=== PATIENT | female | born 1985 | race Caucasian/White ===

== ENCOUNTER 2019-11-02 18:23 | Emergency (ER) | payer MEDICAID, SELFPAY ==
[2019-11-02 18:26] VITALS: BP 127/86; PULSE 116; RESP 18; TEMP 36.8; O2SAT 98; BMI 33.6
[2019-11-02 18:34] VITALS: BP 127/86; PULSE 126; RESP 17; O2SAT 98
--- NOTE | 2019-11-02 18:39 | ED_ITS ---
HPI - Nausea/Vomiting/Diarrhea General: Chief complaint: Nausea/Vomiting/Diarrhea Stated complaint: n/ Time Seen by Provider: 11/02/19 18:31 Source: patient Mode of arrival: ambulatory Limitations: no limitations History of Present Illness: HPI Narrative: Patient is a nice 34-year-old female presents to ED today with a complaint of nausea and vomiting over the past 3 to 4 days. Patient states she has not been able to hold anything down. She is having some mild epigastric pain that she attributes to the vomiting. She has not had any episodes of hematemesis or coffee-ground emesis. Patient is having normal bowel movements. She denies urinary symptoms. No fever/chills. She denies recent alcohol use, bad food exposures, antibiotic use, marijuana. She has no previous abdominal surgeries. Current medications include Remeron and Sertraline. MD elicited complaint: nausea, vomiting and abdominal pain Onset (ago): day(s) Associated nausea: Yes Associated abdominal pain: Yes Location of pain: Epigastric Exacerbating factors: eating Relieving factors: none Associated symtoms: Reports nausea; Denies change in vision, chest pain, dysuria or headache(s) Review of Systems Const: Denies: fever(s), chills or body aches Eyes: Denies: change in vision, blurry vision, photophobia, floaters or seeing flashes ENMT: Denies: throat pain or odynophagia Card: Denies: chest pain Resp: Denies: dyspnea GI: Reports: abdominal pain, nausea and vomiting; Denies: hematemesis, coffee ground emesis, diarrhea, constipation, change in stool character, hematochezia or melena : Denies: flank pain, difficulty voiding, dysuria, urinary frequency, urinary urgency or urinary hesitancy Musc: Denies: neck pain or back pain Skin/Breast: Denies: rash Neuro: Denies: headache(s), numbness in extremities, weakness in extremities or sensory changes PFSH ED PFSH: Medical History (Updated 11/02/19 @ 20:56 by GAVIOTA Madden) Alcohol dependence, in remission Cannabis dependence, in remission Generalized anxiety disorder Major depressive disorder, recurrent severe without psychotic features Nicotine dependence, cigarettes, uncomplicated Opioid dependence, in remission Other stimulant dependence, in remission Social History (Updated 07/01/19 @ 09:08 by JOCELIN Baxtre Smoking and tobacco status: current every day smoker cigarettes Packs smoked per day: 1 Smoking risk assessment/counseling performed?: Yes Tobacco counseling given: counseling >3 minutes Physical Exam Const: COMMON NORMALS: no acute distress, average body habitus, patient oriented x3, no limitations, healthy appearing, alert and well nourished ORIENTATION/CONSCIOUSNESS: Yes oriented to person, Yes oriented to place and Yes oriented to time Resp: COMMON NORMALS: normal respiratory effort and clear to auscultation bilaterally AUSCULTATION: clear to auscultation bilaterally Cardio: COMMON NORMALS: regular rate and regular rhythm RATE: regular rate RHYTHM: regular rhythm GI: COMMON NORMALS: Normal to inspection, nondistended, normoactive bowel sounds present, Soft to palpation, No hepatosplenomegaly present and no masses PALPATION: Yes Soft to palpation, Yes Tenderness to palpation present (GI) (mild epigastric) and Yes No hepatosplenomegaly present Extremity: COMMON NORMALS: no clubbing, cyanosis or edema and no pedal edema Neuro: COMMON NORMALS: patient oriented x3 SENSORIUM/ORIENTATION: Yes alert, Yes oriented to person, Yes oriented to place and Yes oriented to time Skin: COMMON NORMALS: no rashes or lesions noted GENERAL SKIN EXAM: no rashes or lesions noted Course Vital Signs: Vital signs: Vital Signs Temperature 98.3 F 11/02/19 18:26 Pulse Rate 126 H 11/02/19 18:34 Respiratory Rate 17 11/02/19 18:34 Blood Pressure 127/86 11/02/19 18:34 Pulse Oximetry 98 11/02/19 18:34 MDM - Nausea/Vomiting/Diarrhea MDM Narrative: Medical decision making narrative: Patient's labs are non- concerning at this time. UA grossly contaminated but does not appear overly suspicious for UTI. She was found to be which patient was unaware of. Hcg consistent with a probable 7 to 8-week . Patient will be given prescription for Diclegis and she states she will try to follow-up with Dr. Sher [facility] for OB care. Return to ED precautions given. Lab Data: Labs: Lab Results 11/02/19 11/02/19 11/02/19 Range/Units 18:49 18:52 18:52 WBC 14.2 H (4.0-10.0) 10^3/ uL RBC 4.91 (4.1-5.3) 10^6/u L Hgb 13.1 (11.5-15.3) g/dL Hct 39.9 (37.0-47.0) % MCV 81.3 (81-99) fL MCH 26.7 L (28.0-34.0) pg MCHC 32.8 (30.0-36.0) g/dL RDW 14.6 (12.1-15.1) % Plt Count 321 (130-400) 10^3/c mm MPV 10.5 H (7.4-10.4) fL Neut % (Auto) 63.9 % Lymph % (Auto) 29.7 % Park % (Auto) 5.1 % Eos % (Auto) 0.6 % Baso % (Auto) 0.3 % Neut # (Auto) 9.08 H (1.8-7.7) 10^3/u L Lymph # (Auto) 4.2 (0.8-4.8) 10^3/u L Park # (Auto) 0.7 (0.2-0.9) 10^3/u L Eos # (Auto) 0.1 (0.0-0.8) 10^3/u L Baso # (Auto) 0.0 (0.0-0.1) 10^3/u L Nucleated RBC % (a uto) 0 % Nucleated RBCs # 0.0 /100WBC Sodium 136 (136-145) mmol/L Potassium 3.5 (3.5-5.1) mmol/L Chloride 104 (98-107) mmol/L Carbon Dioxide 20 L (22-29) mmol/L Anion Gap 15.5 (5-19) BUN 6 (6-20) mg/dL Creatinine 0.7 (0.5-0.9) mg/dL GFR Calculation 95.8 (90-130) mL/min Glucose 98 (65-115) mg/dL Calculated Osmolal ity 278 L (285-295) mOsm/k g Calcium 9.5 (8.5-10.5) mg/dL Total Bilirubin 0.2 (0.15-1.2) mg/dL AST 15 (0-32) U/L ALT 9 (0-33) U/L Alkaline Phosphata se 83 (35-105) IU/L Total Protein 7.2 (6.6-8.7) g/dL Albumin 4.5 (3.5-5.2) g/dL Globulin 2.7 (1.3-4.6) g/dL Lipase 23 (13-60) U/L HCG, Qual (Negative) Ser , Sae i-Qnt mIU/mL Urine Color Yellow (Yellow) Urine Appearance Cloudy (CLEAR) Urine pH 5 (5-7) Ur Specific Gravit y 1.020 (1.005-1.030) Urine Protein Neg (Negative) Urine Glucose (UA) Norm (Normal) Urine Ketones Negative (Negative) Urine Blood Neg (Negative) Urine Nitrate Negative (Negative) Urine Bilirubin 1+ H (NEGATIVE) Urine Urobilinogen 1 H (Negative) mg/dL Ur Leukocyte Cesia ase 1+ H (Negative) Urine RBC 0-4 H (0-2) /hpf Urine WBC 5-10 H (0-5) /hpf Ur Squamous Epith Cells 55-80 H (0-5) Amorphous Sediment Not Reportable Urine Bacteria 1+ H (NONE) 11/02/19 11/02/19 Range/Units 18:52 18:52 WBC (4.0-10.0) 10^3/ uL RBC (4.1-5.3) 10^6/u L Hgb (11.5-15.3) g/dL Hct (37.0-47.0) % MCV (81-99) fL MCH (28.0-34.0) pg MCHC (30.0-36.0) g/dL RDW (12.1-15.1) % Plt Count (130-400) 10^3/c mm MPV (7.4-10.4) fL Neut % (Auto) % Lymph % (Auto) % Park % (Auto) % Eos % (Auto) % Baso % (Auto) % Neut # (Auto) (1.8-7.7) 10^3/u L Lymph # (Auto) (0.8-4.8) 10^3/u L Park # (Auto) (0.2-0.9) 10^3/u L Eos # (Auto) (0.0-0.8) 10^3/u L Baso # (Auto) (0.0-0.1) 10^3/u L Nucleated RBC % (a uto) % Nucleated RBCs # /100WBC Sodium (136-145) mmol/L Potassium (3.5-5.1) mmol/L Chloride (98-107) mmol/L Carbon Dioxide (22-29) mmol/L Anion Gap (5-19) BUN (6-20) mg/dL Creatinine (0.5-0.9) mg/dL GFR Calculation (90-130) mL/min Glucose (65-115) mg/dL Calculated Osmolal ity (285-295) mOsm/k g Calcium (8.5-10.5) mg/dL Total Bilirubin (0.15-1.2) mg/dL AST (0-32) U/L ALT (0-33) U/L Alkaline Phosphata se (35-105) IU/L Total Protein (6.6-8.7) g/dL Albumin (3.5-5.2) g/dL Globulin (1.3-4.6) g/dL Lipase (13-60) U/L HCG, Qual Positive H (Negative) Ser , [place]Qnt 44324.00 mIU/mL Urine Color (Yellow) Urine Appearance (CLEAR) Urine pH (5-7) Ur Specific Gravit y (1.005-1.030) Urine Protein (Negative) Urine Glucose (UA) (Normal) Urine Ketones (Negative) Urine Blood (Negative) Urine Nitrate (Negative) Urine Bilirubin (NEGATIVE) Urine Urobilinogen (Negative) mg/dL Ur Leukocyte Cesia ase (Negative) Urine RBC (0-2) /hpf Urine WBC (0-5) /hpf Ur Squamous Epith Cells (0-5) Amorphous Sediment Urine Bacteria (NONE) Discharge Plan Discharge Patient Disposition: Home, Self-Care Clinical Impression: Nausea and vomiting during Condition: Stable Prescriptions: New Diclegis 10-10 mg tablet,delayed release (DR/EC) 1 tab PO TID Qty: 30 RF: 0 No Action sertraline [Zoloft] 100 mg tablet 200 mg PO DAILY Qty: 60 RF: 1 mirtazapine 45 mg tablet 45 mg PO BEDTIME RF: 0 Discharge Orders: Discharge Order (Routine); Ordered 07/13/20 Ordered By: Jewels Juarez Referrals: Rolando Domingo MD [Primary Care Provider] - Patient Instructions: Morning Sickness (ED), (ED), Acute Nausea and Vomiting (ED) Activity Restrictions/Additional Instructions: Please follow-up with the women's health clinic or Dr. Sher as soon as possible for OB care. Return to the emergency department for worsening nausea and vomiting, abdominal pain, fevers, vaginal bleeding, any other concerns you may have. Coding Level of Care Code ED Director Of Vital Statistics for Chg Fwd Exam Detailed
[2019-11-02 18:58] LABS: Basophils % 0.3 %; Eosinophils # 0.1 10^3/uL (0.0-0.8); Eosinophils % 0.6 %; Hematocrit 39.9 % (37.0-47.0); Hemoglobin 13.1 g/dL (11.5-15.3); Lymphocytes # 4.2 10^3/uL (0.8-4.8); Lymphocytes % 29.7 %; Mean Corpuscular HGB Conc 32.8 g/dL (30.0-36.0); Mean Corpuscular Hemoglobin 26.7 pg (28.0-34.0); Mean Corpuscular Volume 81.3 fL (81-99); Mean Platelet Volume 10.5 fL (7.4-10.4); Monocytes # 0.7 10^3/uL (0.2-0.9); Monocytes % 5.1 %; Neutrophils # 9.08 10^3/uL (1.8-7.7); Neutrophils % 63.9 %; Nucleated Red Blood Cells % 0 %; Platelet Count 321 10^3/cmm (130-400); Red Blood Count 4.91 10^6/uL (4.1-5.3); Red Cell Distribution Width 14.6 % (12.1-15.1); White Blood Count 14.2 10^3/uL (4.0-10.0)
[2019-11-02] MEDS: lidocaine 2% viscous 15 ML, aluminum-mag hydrox-simethicon 30 ML, sucralfate oral liq 1 GM PO (19:09)
[2019-11-02 19:13] LABS: Alanine Aminotransferase 9 U/L (0-33); Albumin Level 4.5 g/dL (3.5-5.2); Alkaline Phosphatase 83 IU/L (35-105); Anion Gap 15.5 (5-19); Aspartate Amino Transferase 15 U/L (0-32); Blood Urea Nitrogen 6 mg/dL (6-20); Calcium 9.5 mg/dL (8.5-10.5); Carbon Dioxide 20 mmol/L (22-29); Chloride 104 mmol/L (98-107); Globulin 2.7 g/dL (1.3-4.6); Glomerular Filtration Rate 95.8 mL/min (90-130); Glucose 98 mg/dL (65-115); Lipase 23 U/L (13-60); Osmolality Calculated 278 mOsm/kg (285-295); Potassium 3.5 mmol/L (3.5-5.1); Sodium 136 mmol/L (136-145); Total Bilirubin 0.2 mg/dL (0.15-1.2); Total Protein 7.2 g/dL (6.6-8.7)
[2019-11-02 19:14] LABS: Add Urine Microscopic? YES; Blood Urine Neg (Negative); Glucose Urine UA Norm (Normal); Ketones Urine Negative (Negative); Leukocyte Esterase Urine 1+ (Negative); Nitrate Urine Negative (Negative); Protein Urine Neg (Negative); Urine Appearance Cloudy (CLEAR); Urine Color Yellow (Yellow); pH Urine 5 (5-7)
[2019-11-02] MEDS: sodium chloride 0.9% 1,000 ML 999 ML IV (19:15)
[2019-11-02 19:18] LABS: Bilirubin Urine 1+ (NEGATIVE); RBC Urine 0-4 /hpf (0-2); Urobilinogen Urine 1 mg/dL (Negative)
[2019-11-02] MEDS: ondansetron 2 mg/ML SDV 2 mL 4 MG IVP (19:18)
[2019-11-02 19:19] LABS: HCG, Serum Qual Positive (Negative)
[2019-11-02 19:19] LABS: Add Urine Culture? No; Bacteria Urine 1+; Squamous Epithelial Cell Urine 55-80 (0-5)
--- NOTE | 2019-11-02 19:26 | PC.NURSE ---
pt tolerated GI cocktail well
--- NOTE | 2019-11-02 20:39 | PC.NURSE ---
Pt states nausea has resolved. rates pain 2/10
[2019-11-02 21:43] VITALS: BP 131/86; PULSE 90; RESP 18; O2SAT 97
== END 2019-11-02 21:47 | disposition home or self-care (01) ==
PROVIDERS: Emergency Provider Physician Assistant; PCP Family Medicine
DX: O26.891 Other specified pregnancy related conditions, first trimester (principal); R11.2 Nausea with vomiting, unspecified; Z3A.01 Less than 8 weeks gestation of pregnancy; O99.331 Smoking (tobacco) complicating pregnancy, first trimester; F17.210 Nicotine dependence, cigarettes, uncomplicated
CPT/HCPCS: 12345; 36415; 80053; 81001; 81003; 83690; 84702; 84703; 85025; 96361; 96374; 99282; 99283; J2405; J7030

== ENCOUNTER → 2019-11-13 13:27 | Outpatient (BNVA) | payer MEDICAID, SELFPAY | PROVIDERS: PCP Family Medicine; Visit Provider Nurse Practitioner Women's Health | DX: O99.320 Drug use complicating pregnancy, unspecified trimester (principal) | CPT/HCPCS: 80307; 81000 ==

== ENCOUNTER → 2019-11-26 09:30 | Outpatient (BNVA) | payer MEDICAID, SELFPAY | PROVIDERS: Visit Provider Nurse Practitioner | DX: F33.2 Major depressive disorder, recurrent severe without psychotic features (principal); F41.1 Generalized anxiety disorder | CPT/HCPCS: 99214 ==

== ENCOUNTER → 2019-12-25 08:12 | Outpatient (BNVA) | payer MEDICAID, SELFPAY | PROVIDERS: Visit Provider Nurse Practitioner | DX: F33.2 Major depressive disorder, recurrent severe without psychotic features (principal); F41.1 Generalized anxiety disorder; F17.210 Nicotine dependence, cigarettes, uncomplicated | CPT/HCPCS: 99214 ==

== ENCOUNTER → 2020-01-25 07:53 | Outpatient (BNVA) | payer MEDICAID, SELFPAY | PROVIDERS: Visit Provider Nurse Practitioner | DX: F41.1 Generalized anxiety disorder (principal); F33.2 Major depressive disorder, recurrent severe without psychotic features; F17.210 Nicotine dependence, cigarettes, uncomplicated | CPT/HCPCS: 99213 ==

== ENCOUNTER → 2020-03-07 07:33 | Outpatient (BNVA) | payer MEDICAID, SELFPAY | PROVIDERS: Visit Provider Nurse Practitioner | DX: F41.1 Generalized anxiety disorder (principal); F33.2 Major depressive disorder, recurrent severe without psychotic features | CPT/HCPCS: 99213 ==

== ENCOUNTER → 2020-05-12 08:36 | Outpatient (BNVA) | payer BC, SELFPAY | PROVIDERS: Visit Provider Nurse Practitioner | DX: F33.2 Major depressive disorder, recurrent severe without psychotic features (principal); F41.1 Generalized anxiety disorder; F17.210 Nicotine dependence, cigarettes, uncomplicated | CPT/HCPCS: 99214 ==

== ENCOUNTER 2020-06-10 00:07 | Inpatient (IN) | payer BC, MEDICAID, SELFPAY ==
[2020-06-09 23:44] VITALS: RESP 17
[2020-06-09 23:46] VITALS: BMI 29.0
[2020-06-09 23:47] VITALS: TEMP 36.8
[2020-06-09 23:50] VITALS: BP 149/78; PULSE 120
[2020-06-10] VITALS (81 sets, daily range): BP systolic 98–176; BP diastolic 50–122; PULSE 88–136; RESP 16–18; TEMP 35.8–37.9; O2SAT 96–100
[2020-06-10] MEDS: dextrose 5%-lactated ringers 1,000 ML 125 ML IV (00:51)
[2020-06-10] MEDS: oxytocin 30 UNIT/500 ML BAG IV (00:55)
[2020-06-10 01:11] LABS: Basophils # 0.1 10^3/uL (0.0-0.1); Basophils % 0.4 %; Eosinophils # 0.1 10^3/uL (0.0-0.8); Eosinophils % 0.3 %; Hematocrit 37.2 % (37.0-47.0); Hemoglobin 12.5 g/dL (11.5-15.3); Lymphocytes # 4.5 10^3/uL (0.8-4.8); Lymphocytes % 21.5 %; Mean Corpuscular HGB Conc 33.6 g/dL (30.0-36.0); Mean Corpuscular Hemoglobin 27.9 pg (28.0-34.0); Monocytes # 1.2 10^3/uL (0.2-0.9); Monocytes % 5.5 %; Neutrophils # 14.83 10^3/uL (1.8-7.7); Neutrophils % 71.5 %; Nucleated Red Blood Cells % 0 %; Platelet Count 332 10^3/cmm (130-400); Red Blood Count 4.48 10^6/uL (4.1-5.3); Red Cell Distribution Width 14.3 % (12.1-15.1); White Blood Count 20.7 10^3/uL (4.0-10.0)
[2020-06-10 01:35] LABS: Amphetamines Screen Urine Negative (Negative); Barbiturates Screen Urine Negative (Negative); Benzodiazepines Screen Urine Negative (Negative); Cocaine Screen Urine Negative (Negative); Opiate Screen Urine Negative (Negative); PCP Screen Urine Negative (Negative); THC Screen Urine Positive (Negative)
[2020-06-10] MEDS: ondansetron 2 mg/ML SDV 2 mL 4 MG IVP ×2 (02:41→15:31)
[2020-06-10] MEDS: lactated ringers 1,000 ML 999 ML IV ×5 (03:03→17:23)
[2020-06-10] MEDS: metoclopramide 5 mg/mL SDV 2 mL 10 MG IV (03:55)
[2020-06-10] MEDS: fentaNYL 50 mcg/mL INJ 2mL IV (04:29)
--- NOTE | 2020-06-10 05:00 | P.ANESASSM_ITS ---
Pre-Anesthetic Assessment Pre-Anesthetic Assessment: Height/Weight: Height 1.6 m Weight 74.389 kg Temp Pulse Resp BP Pulse Ox 97.2 F L 107 H 18 131/72 100 06/10/20 05:37 06/10/20 05:47 06/10/20 04:29 06/10/20 05:48 06/10/20 05:47 Preop Diagnosis: IUP Was Beta Juan José taken within 24 hours: N/A Social: Social History: Alcohol (history of dependence) and Tobacco Comment: marijuana + Exam: Pre-Anes Outpt Exam: alert, oriented x 3, clear to auscultation bilaterally and regular rate & rhythm Airway: Submandibular: WNL Cervical ROM: WNL MP: 2 Additional comments: piercings History/ROS: No significant history except as noted Pulmonary: Pulmonary: None reported CV/HEM: CV/HEM: HTN : : None reported Hepatic: Hepatic: None reported GI: GI: None reported Metabolic: Metabolic: None reported Musc/skel: Musc/skel: None reported Neuropsych: Neuropsych: Anxiety and Depression Comments: major depressive disorder Anesthetic Plan: ASA status: 2 Anesthesia: Anesthesia Evaluation and Regional (specify below) Risk of > 500 ml blood loss (7ml/kg in children): No Meds/Allergies Current Medications: Current Medications Generic Name Dose Route Start Last Admin Trade Name Freq PRN Reason Stop Dose Admin Fentanyl 25 - 100 mcg 06/10/20 00:06 06/10/20 04:29 Fentanyl 50 Mcg/ Ml Inj 2ml IV 25 mcg Q1H PRN Administration SEVERE PAIN Dextrose/Lactated Ringer's 1,000 mls @ 125 m ls/hr 06/10/20 00:06 06/10/20 03:33 Dextrose 5%-Lact ated Ringers IV 0 mls/hr .Q8H PRN Infusion LABOR INDUCTION Lactated Ringer's 1,000 mls @ 999 m ls/hr 06/10/20 00:06 06/10/20 05:14 Lactated Ringers IV Infused .Q1H1M PRN Infusion Per L&D Rescitati on Protocol Oxytocin 30 unit in 500 ml s @ 1 mls/hr 06/10/20 00:06 06/10/20 02:09 Pitocin IV 2 milliunit/min .Q24H PRN 2 mls/hr LABOR INDUCTION Titration Protocol 1 MILLIUNIT/MIN Lactated Ringer's 1,000 mls @ 999 m ls/hr 06/10/20 00:09 06/10/20 05:14 Lactated Ringers IV 999 mls/hr .Q1H1M PRN Administration See label comment s Ondansetron HCl 4 mg 06/10/20 00:06 06/10/20 02:41 Ondansetron 2 Mg /Ml Sdv 2 Ml IVP 4 mg Q4H PRN Administration NAUSEA AND VOMITI NG PFSH Anesthesia PFSH: Medical History (Updated 11/13/19 @ 14:41 by Venice Quispe APN, RANDAL) Alcohol dependence, in remission Hypertension was diagnosed 2018; changed diet for management Major depressive disorder, recurrent severe without psychotic features Nicotine dependence, cigarettes, uncomplicated No pertinent past medical history neghx: dm,thyroid,dvt/pe,genital herpes negative partner hx herpes Opioid dependence, in remission 2017 Other stimulant dependence, in remission Surgical History (Updated 11/13/19 @ 14:30 by Venice Quispe APN, RANDAL) H/O dilation and curettage (~2002) due to heavy bleeding History of tonsillectomy and adenoidectomy As a child Family History Family/Other Breast cancer Paternal aunt Family history of thyroid problem Maternal cousins Ovarian cancer Maternal great aunt Uterine cancer Maternal great aunt Grandmother Breast cancer Maternal great grandmother Maternal grandmother Hyperlipidemia Maternal grandmother Hypertension Maternal grandmother Stroke Paternal grandmother Mother Heart disease Hypertension Grandfather Stroke Maternal grandfather Denies family history of Colon cancer Diabetes Social History (Updated 11/13/19 @ 14:48 by Venice Quispe APN, RANDAL) Smoking and tobacco status: current every day smoker Smoking risk assessment/counseling performed?: Yes Additional social history: - Tobacco use: Current everyday smoker; 0.5pk daily; this is down from 1-1.5 ppd Alcohol use: Former; Quit over 10 years Drug use: Marijuana; last used 10/2019 Female Reproductive History: : 1 Data Anesthesia CBC & Chem 7: 06/10/20 00:30 Other Labs: Laboratory Results - last 48 hr 06/10/20 06/10/20 00:30 00:30 WBC 20.7 H RBC 4.48 Hgb 12.5 Hct 37.2 MCV 83.0 MCH 27.9 L MCHC 33.6 RDW 14.3 Plt Count 332 MPV 12.0 H Neut % (Auto) 71.5 Lymph % (Auto) 21.5 [place] % (Auto) 5.5 Eos % (Auto) 0.3 Baso % (Auto) 0.4 Neut # (Auto) 14.83 H Lymph # (Auto) 4.5 [place] # (Auto) 1.2 H Eos # (Auto) 0.1 Baso # (Auto) 0.1 Nucleated RBC % (auto) 0 Nucleated RBCs # 0.0 Urine Opiates Screen Negative Ur Barbiturates Screen Negative Ur Phencyclidine Scrn Negative Ur Amphetamines Screen Negative U Benzodiazepines Scrn Negative Urine Cocaine Screen Negative U Marijuana (THC) Screen Positive H Cardiac Studies: No Data to Display
--- NOTE | 2020-06-10 05:54 | ANES.PROC ---
Anesthesia Procedures Procedure/Date: 06/10/20 Epidural: Time Out Performed: Yes Consents Signed: Procedure Consent Consent: requested by attending/covering physician Lumbar Level: L4-L5 Epidural position: sitting Epidural procedure: sterile prep of area, 1% lidocaine to numb the area, 18 g needle, negative for paresthesia passed, neg for paresthesia, test dose given, 1.5% xylocaine 1:200k epi (5ml), placed PCEA, no systemic response, sterile dressing applied, L.U.D. no apparent complications and 0.2% Ropiavacaine @ mls/hr (13) Additional Comments: Fentanyl 100mcg per epidural
--- NOTE | 2020-06-10 11:30 | PM.DELIVERY ---
Delivery Note: Date of delivery: June 10, 2020 Pre-Delivery Course: The patient had routine care at [facility]. Her was complicated by insufficient maternal weight gain. In fact she had a weight loss of approximately 20 pounds. She did continue to smoke cigarettes and marijuana during the . She has blood type B+ antibody negative, GC chlamydia negative, hepatitis B surface antigen nonreactive, hepatitis C nonreactive, HIV nonreactive, rubella immune. She passed her glucose tolerance test and was GBS negative. She was Covid unknown. Delivery: This is a 34-year-old G1, P0 at 38 weeks 0 days gestation by 8-week ultrasound KARAN of 06/24/20 who presented to labor and delivery complaining of spontaneous rupture of membranes. This occurred at about 20-30 on 218 and she stated was clear fluid. She was admitted for expectant management. She received an epidural for pain management. Her labor progressed well on its own. She had a normal spontaneous vaginal delivery of a viable male infant weight 4 pounds 15 ounces, 2240 g, Apgars 8 and 9 over an intact perineum. There was no nuchal cord. The was suctioned at delivery and placed on the mother's chest. The cord was clamped and cut. The placenta was delivered grossly intact and normal to inspection. There was a right labial laceration that was hemostatic but sutured for cosmesis. Mother and were doing well after delivery. A&P Assessment and plan (1) Normal spontaneous vaginal delivery: Routine care Status: Acute (2) Tobacco use during , delivered: Status: Acute (3) Marijuana use: Status: Acute Coding Level of Care Code Acute Physics Tutor for Chg Fwd Diagnoses Normal spontaneous vaginal delivery O80 Tobacco use during , delivered O99.334 Marijuana use F12.90
[2020-06-10] MEDS: miSOPROStol 200 mcg Tablet 800 MCG PO (12:12)
--- NOTE | 2020-06-10 12:15 | PC.NURSE ---
This resume writer at bedside with Veronique RN to administer 800mg rectally. This resume writer gave 8, 100 mcg of cytotec rectally with Veronique RN at the bedside to verify dose.
[2020-06-10] MEDS: oxytocin 10 unit/mL SDV 1 mL 40 UNIT IV (12:18)
[2020-06-10] MEDS: carboprost tromethamine 250 mcg/mL Amp IM (15:24)
[2020-06-10] MEDS: methylergonovine 0.2 mg/mL INJ 1 mL IM (15:24)
[2020-06-10] MEDS: benzocaine-menthol 78 gm Canister 1 SPRAY TOPICAL (19:13)
[2020-06-10] MEDS: HYDROcodone-acetaminophen 5-325 mg Tablet 2 TAB PO (19:18)
[2020-06-10] MEDS: docusate sodium 100 mg Capsule PO (20:12)
[2020-06-10] MEDS: ibuprofen 800 mg tablet PO (20:12)
[2020-06-10 20:38] LABS: Basophils # 0.1 10^3/uL (0.0-0.1); Basophils % 0.3 %; Hematocrit 30.4 % (37.0-47.0); Hemoglobin 10.1 g/dL (11.5-15.3); Lymphocytes # 4.9 10^3/uL (0.8-4.8); Lymphocytes % 21.5 %; Mean Corpuscular HGB Conc 33.2 g/dL (30.0-36.0); Mean Corpuscular Hemoglobin 28.1 pg (28.0-34.0); Mean Corpuscular Volume 84.7 fL (81-99); Mean Platelet Volume 12.3 fL (7.4-10.4); Monocytes # 1.2 10^3/uL (0.2-0.9); Monocytes % 5.4 %; Neutrophils # 16.53 10^3/uL (1.8-7.7); Neutrophils % 72.1 %; Nucleated Red Blood Cells % 0 %; Platelet Count 271 10^3/cmm (130-400); Red Blood Count 3.59 10^6/uL (4.1-5.3); Red Cell Distribution Width 14.3 % (12.1-15.1); White Blood Count 22.9 10^3/uL (4.0-10.0)
[2020-06-11] VITALS (7 sets, daily range): BP systolic 111–157; BP diastolic 59–64; PULSE 110–125; RESP 18; TEMP 36.1–36.5
[2020-06-11 01:11] LABS: Hematocrit 23.6 % (37.0-47.0); Hemoglobin 7.7 g/dL (11.5-15.3); Mean Corpuscular HGB Conc 32.6 g/dL (30.0-36.0); Mean Corpuscular Hemoglobin 27.9 pg (28.0-34.0); Mean Corpuscular Volume 85.5 fL (81-99); Mean Platelet Volume 12.1 fL (7.4-10.4); Platelet Count 253 10^3/cmm (130-400); Red Blood Count 2.76 10^6/uL (4.1-5.3); Red Cell Distribution Width 14.5 % (12.1-15.1); White Blood Count 29.2 10^3/uL (4.0-10.0)
[2020-06-11] MEDS: ibuprofen 800 mg tablet PO ×3 (09:40→20:39)
[2020-06-11] MEDS: docusate sodium 100 mg Capsule PO ×2 (09:40→18:10)
[2020-06-11] MEDS: prenatal vitamin Capsule 1 CAP PO (09:40)
--- NOTE | 2020-06-11 10:11 | ANE.PACU2 ---
Inpatient post-anesthesia follow up: Airway intact: Yes Vital signs: Temperature 97.5 F Pulse Rate 115 Respiratory Rate 18 Blood Pressure 128/59 Pulse Oximetry 99 Oxygen Delivery Me thod Room Air Oxygen Flow Rate Fraction of Inspir ed Oxygen Hydration adequate: Yes Nausea and vomiting: No Pain level: 2 Mental status: Baseline Additional Comments: No s/s of infection at epidural site, no numbness/weakness lower extremities, no headache, urinating without ivory
[2020-06-11] MEDS: sertraline 100 mg Tablet 150 MG PO (12:12)
[2020-06-12] VITALS (7 sets, daily range): BP systolic 104–124; BP diastolic 54–56; PULSE 105–126; RESP 18–20; TEMP 36.3–36.9
[2020-06-12] MEDS: prenatal vitamin Capsule 1 CAP PO (08:43)
[2020-06-12] MEDS: docusate sodium 100 mg Capsule PO (08:43)
[2020-06-12] MEDS: ibuprofen 800 mg tablet PO (08:43)
--- NOTE | 2020-06-12 11:17 | P.DS_ITS ---
Discharge Providers PLANT PROTECTION OFFICER Date of Admission: 06/10/20 00:07 Date of Discharge: 06/12/20 Attending Provider at Admission: Dolly Nieves MD Attending Provider at Discharge: Dolly Nieves MD Primary Care Provider: [facility] Diagnoses at Discharge Discharge Diagnosis (1) Normal spontaneous vaginal delivery: Status: Acute (2) Tobacco use during , delivered: Status: Acute (3) Marijuana use: Status: Acute (4) hemorrhage: Status: Acute Reason for Visit Reason for Visit: possible SROM Hospital Course Hospital Course This is a 34-year-old G1 now P1 who was admitted to labor and delivery in active labor. She had a normal spontaneous vaginal delivery of a viable male infant. Mother had hemorrhage within the first 2 to 6 hours of delivery and required Cytotec, transischemic acid, Methergine and Hemabate. It seemed to be related to intermittent uterine atony. After the initial 6 hours she did well. Her bleeding was light. She denied any significant dizziness or lightheadedness. She denied any unusual shortness of breath. She was pleased she did not require blood transfusion. She was agreeable to continuing iron supplementation. Her uterus remained tight and firm and she was monitored for a good 48 hours postdelivery. Information Peripartum Data: Infant Delivery Method: Vaginal Physical Exam HENMT: COMMON NORMALS: normocephalic and atraumatic HEAD & SCALP: normocephalic and atraumatic Eye: COMMON NORMALS: Equal, round and reactive pupils present and EOMs intact bilaterally PUPIL: Yes Equal, round and reactive pupils present Chest: COMMONS NORMALS: normal inspection of the chest Resp: COMMON NORMALS: normal respiratory effort and clear to auscultation bilaterally AUSCULTATION: clear to auscultation bilaterally Cardio: COMMON NORMALS: regular rate RATE: regular rate and tachycardic (110) GI: COMMON NORMALS: Soft to palpation (Fundus firm U- 2) and non-tender PALPATION: Yes Soft to palpation (Fundus firm U- 2) Extremity: COMMON NORMALS: no calf tenderness and no pedal edema Urinary Catheter Management^: [place]: Cath Placed During This Visit: yes Reason for Continuing Indwelling Catheter: Accurate Measurement of Urinary Output in Critically Ill Patients Urinary Catheter Date of Insertion: 06/10/20 Urinary Catheter Time of Insertion: 07:20 Discharge Data Data Completed and Pending: Pending at discharge Category Date Time Status RED BLOOD CELLS [ Leukocyte Reduced RBC] Routine Lab 06/10/20 00:30 Results Type and Screen R outine Lab 06/10/20 00:30 Results Vitals: Last Vital Signs Temp 98.1 F 06/12/20 09:04 Pulse 118 H 06/12/20 09:05 Resp 18 06/11/20 10:00 BP 107/56 06/12/20 09:05 Pulse Ox 99 06/10/20 16:09 Discharge Plan Discharge Patient Disposition: Home Condition: Stable Prescriptions: Continued prenat.vits,giselle,fwm-[id number] Tablet 1 tab PO DAILY RF: 0 ondansetron HCl [Zofran] 4 mg tablet 4 mg PO Q6H PRN (Reason: Nausea) RF: 0 sertraline [Zoloft] 100 mg tablet 150 mg PO DAILY Qty: 30 RF: 1 Discharge Orders: Discharge Order (Routine); Ordered 06/12/20 Ordered By: Dolly Nieves Referrals: Dolly Nieves MD [Physician] - 1 month Discharge Diet: Usual diet Discharge Activity: Limit activity as instructed Patient Instructions: OB Discharge Report, OB Food/Drug Interaction Guide, OB Vaginal Deliveries, Abnormal Bleeding, Depression Discharge Attestations PLANT PROTECTION OFFICER Time Spent in Discharge Care*: less than 30 min Coding Level of Care Code Acute Inspector Advanced Composite for Chg Fwd Diagnoses Normal spontaneous vaginal delivery O80 Tobacco use during , delivered O99.334 Marijuana use F12.90 hemorrhage O72.1
== END 2020-06-12 13:30 | disposition home or self-care (01) | DRG 768 ==
LOC: OBGYN 06-12 11:20 → OPOB 06-14 07:42
PROVIDERS: Admitting Provider Family Medicine; Visit Provider Family Medicine
DX: O42.02 Full-term premature rupture of membranes, onset of labor within 24 hours of rupture (principal); Z37.0 Single live birth; O99.324 Drug use complicating childbirth; O72.1 Other immediate postpartum hemorrhage; F12.10 Cannabis abuse, uncomplicated; Z3A.38 38 weeks gestation of pregnancy; O99.334 Smoking (tobacco) complicating childbirth; F17.210 Nicotine dependence, cigarettes, uncomplicated; O70.0 First degree perineal laceration during delivery
CPT/HCPCS: 36415; 51702; 59025; 59409; 80306; 83986; 85025; 85027; 86850; 86900; 86920; 96372; 99211; J2210; J2405; J2765; J2795; J3010

== ENCOUNTER → 2020-06-13 07:32 | Outpatient (BNVA) | payer BC, MEDICAID, SELFPAY | PROVIDERS: Visit Provider Nurse Practitioner | DX: F33.2 Major depressive disorder, recurrent severe without psychotic features (principal); F41.1 Generalized anxiety disorder; F17.210 Nicotine dependence, cigarettes, uncomplicated; F12.20 Cannabis dependence, uncomplicated | CPT/HCPCS: 99214 ==

== ENCOUNTER 2020-06-26 14:53 | Observation (INO) | payer BC, MEDICAID, SELFPAY ==
[2020-06-26] VITALS (12 sets, daily range): BP systolic 101–134; BP diastolic 54–73; PULSE 78–120; RESP 16–18; TEMP 36.9–38.2; O2SAT 96–100; BMI 27.1
--- NOTE | 2020-06-26 15:08 | USR_ITS ---
PROCEDURE INFORMATION: Exam: US Nonobstetric Pelvis; Complete Exam date and time: 06/26/2020 3:18 PM Age: 34 years old Clinical indication: Other: Vaginal bleeding; Patient HX: Patient states recent delivery with internal stitches; Additional info: Vag bleeding TECHNIQUE: Imaging protocol: Transabdominal pelvic nonobstetric ultrasound. Complete exam. Real time ultrasound with image documentation. COMPARISON: US OB >= 14 weeks fetus [id number] 02/08/2020 4:27 PM FINDINGS: Uterus/cervix: Uterus 11.3 x 6.2 x 8.1 cm. Heterogeneous endometrial echoes measuring 3.1 cm AP dimension, with color Doppler hypervascularity (series 1, images 7 and 11). A small amount of endometrial cavity fluid and/or cystic degeneration is present. Right adnexa: Right ovary not identified. No adnexal mass. Left adnexa: Left ovary not identified. No adnexal mass. Intraperitoneal space: No intraperitoneal fluid. Urinary bladder: Normal. US/US pelvic complete* [id number] IMPRESSION: Findings consistent with retained products of conception.
--- NOTE | 2020-06-26 16:13 | ED_ITS ---
HPI - Female Genitourinary General: Chief complaint: Vaginal Bleeding Stated complaint: Vaginal Bleeding/Headache (Post Delivery Related) Time Seen by Provider: 06/26/20 15:20 History of Present Illness: HPI Narrative: The patient is a 34-year-old female who gave to a vaginal delivery on June 10, 2020. Her hemoglobin at that time was 7.7. She says she has continued to have vaginal bleeding and is beginning to have a headache, dizziness, general weakness and low back pain. The vaginal bleeding is slightly less recently however when she stands up a large gush of dark clotted blood may come out. MD elicited complaint: vaginal bleeding Severity: moderate Quality of pain: cramping Consistency: constant Vaginal bleeding: moderate Exacerbating factors: none Relieving factors: none Associated symptoms: Reports headache(s); Deny abdominal pain Related Data: : 1 Review of Systems General: Reports: 10 or more systems reviewed and unremarkable except in HPI and below Const: Denies: fatigue Eyes: Denies: change in vision, blurry vision or eye redness ENMT: Denies: throat pain, swelling of lips/tongue, ear or mastoid pain or nasal congestion Card: Denies: chest pain, palpitations, irregular heart rhythm, edema, dyspnea on exertion or orthopnea Resp: Denies: dyspnea, productive cough or non-productive cough GI: Denies: abdominal pain, diarrhea or GI cramping : Denies: flank pain, difficulty voiding, urinary frequency or urinary urgency Musc: Denies: neck pain, back pain, extremity pain, joint pain, joint redness, limited range of motion or muscle weakness Skin/Breast: Denies: rash, pruritus, erythema, skin pain or skin tenderness Neuro: Reports: headache(s) Psych: Denies: anxiety or depression Endo: Denies: polyuria All/Imm: Denies: urticaria, throat swelling or tongue swelling PFSH ED PFSH: Medical History (Updated 06/26/20 @ 17:15 by João Manuel MD) Alcohol dependence, in remission Cannabis dependence Hypertension was diagnosed 2018; changed diet for management Major depressive disorder, recurrent severe without psychotic features Nicotine dependence, cigarettes, uncomplicated No pertinent past medical history neghx: dm,thyroid,dvt/pe,genital herpes negative partner hx herpes Opioid dependence, in remission 2018 Other stimulant dependence, in remission Surgical History (Updated 11/13/19 @ 14:30 by Venice Quispe APN, WHNP) H/O dilation and curettage (~2002) due to heavy bleeding History of tonsillectomy and adenoidectomy As a child Family History Family/Other Breast cancer Paternal aunt Family history of thyroid problem Maternal cousins Ovarian cancer Maternal great aunt Uterine cancer Maternal great aunt Grandmother Breast cancer Maternal great grandmother Maternal grandmother Hyperlipidemia Maternal grandmother Hypertension Maternal grandmother Stroke Paternal grandmother Mother Heart disease Hypertension Grandfather Stroke Maternal grandfather Denies family history of Colon cancer Diabetes Social History (Updated 11/13/19 @ 14:48 by Venice Quispe APN, WHNP) Smoking and tobacco status: current every day smoker Smoking risk assessment/counseling performed?: Yes Additional social history: - Tobacco use: Current everyday smoker; 0.5pk daily; this is down from 1-1.5 ppd Alcohol use: Former; Quit over 10 years Drug use: Marijuana; last used 10/2019 Female Reproductive History: : 1 Physical Exam Const: COMMON NORMALS: no acute distress, average body habitus, patient oriented x3, no limitations, healthy appearing, alert and well nourished GENERAL APPEARANCE: cooperative, comfortable, well kempt and well developed ORIENTATION/CONSCIOUSNESS: Yes awake, Yes oriented to person, Yes oriented to place and Yes oriented to time HENMT: COMMON NORMALS: normocephalic, external ears normal and Normal external nose present HEAD & SCALP: normal to inspection and normocephalic NOSE: Normal external nose present EXTERNAL EAR: Yes external ears normal MOUTH: Normal oral and palatal mucosa present THROAT: posterior oropharynx normal Eye: COMMON NORMALS: Equal, round and reactive pupils present and EOMs intact bilaterally GENERAL EYE: appearance normal, both eyes and all related structures PUPIL: Yes Equal, round and reactive pupils present Neck/C-Spine: COMMON NORMALS: full ROM, no lymphadenopathy, no meningeal signs and no JVD GENERAL: Yes normal visual inspection Lymph: LYMPHATIC: no lymphadenopathy noted Chest: COMMONS NORMALS: normal inspection of the chest and normal palpation of entire chest wall Resp: COMMON NORMALS: normal respiratory effort, No retractions, No use of accessory muscles, clear to auscultation bilaterally and percussion normal EFFORT & INSPECTION: Yes able to speak in complete sentences AUSCULTATION: clear to auscultation bilaterally PERCUSSION: percussion normal Cardio: COMMON NORMALS: no JVD, regular rate, regular rhythm, S1 normal heart sound present, S2 normal heart sound present and Peripheral pulses 2+ throughout RATE: regular rate RHYTHM: regular rhythm HEART SOUNDS: S1 normal heart sound present and S2 normal heart sound present PERIPHERAL PULSES: Peripheral pulses 2+ throughout GI: COMMON NORMALS: Normal to inspection, nondistended, normoactive bowel sounds present, Soft to palpation, non-tender and no masses INSPECTION: Yes normal to inspection PALPATION: Yes Soft to palpation : COMMON NORMALS: Yes no CVA tenderness BLADDER/KIDNEY EXAM: Yes no CVA tenderness Back/Pelvis: COMMON NORMALS: no CVA tenderness, thoracic and lumbar spine normal to inspection, no thoracic nor lumbar tenderness and thoraco-lumbar ROM normal Extremity: COMMON NORMALS: normal to inspection, full ROM, capillary refill normal, no joint enlargement and no pedal edema GENERAL: Yes normal exam except as noted Neuro: COMMON NORMALS: patient oriented x3, CN's II-XII intact bilaterally, moves all extremities, no focal motor deficits, no sensory deficits noted and gait normal SENSORIUM/ORIENTATION: Yes alert, Yes oriented to person, Yes oriented to place and Yes oriented to time MENINGEAL SIGNS: Yes no meningeal signs Psych: COMMON NORMALS: mental status grossly normal, Normal thought process present, cooperative, normal affect and speech normal APPEARANCE: Yes well kempt ATTITUDE: Yes calm SPEECH: Yes normal speech THOUGHT PROCESS: Normal thought process present Skin: COMMON NORMALS: no rashes or lesions noted GENERAL SKIN EXAM: no r ashes or lesions noted Course Vital Signs: Vital signs: Vital Signs Temperature 100.7 F H 06/26/20 17:02 Pulse Rate 104 H 06/26/20 17:02 Respiratory Rate 16 06/26/20 17:02 Blood Pressure 125/65 06/26/20 17:02 Pulse Oximetry 100 06/26/20 17:02 MDM - Female MDM Narrative: Medical decision making narrative: The patient has a hemoglobin of 7.1 and is still complaining of vaginal bleeding. Ultrasound shows products of conception. Discussed with Dr. Nieves who accepts for admission to the OB floor. She thinks it is likely just blood and not truly products of conception as the placenta was intact. Will admit under her care. Lab Data: Labs: Lab Results 06/26/20 Range/Units 16:37 WBC 14.5 H (4.0-10.0) 10^3/ uL RBC 2.75 L (4.1-5.3) 10^6/u L Hgb 7.1 L (11.5-15.3) g/dL Hct 23.1 L (37.0-47.0) % MCV 84.0 (81-99) fL MCH 25.8 L (28.0-34.0) pg MCHC 30.7 (30.0-36.0) g/dL RDW 15.1 (12.1-15.1) % Plt Count 445 H (130-400) 10^3/c mm MPV 9.1 (7.4-10.4) fL Neut % (Auto) 82.3 % Lymph % (Auto) 12.7 % Archer % (Auto) 4.2 % Eos % (Auto) 0.0 % Baso % (Auto) 0.2 % Neut # (Auto) 11.89 H (1.8-7.7) 10^3/u L Lymph # (Auto) 1.8 (0.8-4.8) 10^3/u L Archer # (Auto) 0.6 (0.2-0.9) 10^3/u L Eos # (Auto) 0.0 (0.0-0.8) 10^3/u L Baso # (Auto) 0.0 (0.0-0.1) 10^3/u L Nucleated RBC % (a uto) 0 % Nucleated RBCs # 0.0 /100WBC Discharge Plan Discharge Patient Disposition: Admitted As Inpatient Clinical Impression: Vaginal bleeding, Severe anemia Condition: Stable Coding Level of Care Code ED Tile Layer Supervisor for Chg Fwd Exam Comprehensive
[2020-06-26 16:46] LABS: Basophils % 0.2 %; Hematocrit 23.1 % (37.0-47.0); Hemoglobin 7.1 g/dL (11.5-15.3); Lymphocytes # 1.8 10^3/uL (0.8-4.8); Lymphocytes % 12.7 %; Mean Corpuscular HGB Conc 30.7 g/dL (30.0-36.0); Mean Corpuscular Hemoglobin 25.8 pg (28.0-34.0); Mean Platelet Volume 9.1 fL (7.4-10.4); Monocytes # 0.6 10^3/uL (0.2-0.9); Monocytes % 4.2 %; Neutrophils # 11.89 10^3/uL (1.8-7.7); Neutrophils % 82.3 %; Nucleated Red Blood Cells % 0 %; Platelet Count 445 10^3/cmm (130-400); Red Blood Count 2.75 10^6/uL (4.1-5.3); Red Cell Distribution Width 15.1 % (12.1-15.1); White Blood Count 14.5 10^3/uL (4.0-10.0)
[2020-06-26] MEDS: sodium chloride 0.9% 1,000 ML 999 ML IV (17:03)
[2020-06-26 17:14] LABS: Alanine Aminotransferase 9 U/L (0-33); Albumin Level 3.2 g/dL (3.5-5.2); Alkaline Phosphatase 119 IU/L (35-105); Anion Gap 14.7 (5-19); Aspartate Amino Transferase 12 U/L (0-32); Blood Urea Nitrogen 5 mg/dL (6-20); Calcium 8.4 mg/dL (8.5-10.5); Carbon Dioxide 20 mmol/L (22-29); Chloride 102 mmol/L (98-107); Globulin 2.9 g/dL (1.3-4.6); Glomerular Filtration Rate 114.4 mL/min (90-130); Glucose 82 mg/dL (65-115); Osmolality Calculated 272 mOsm/kg (285-295); Potassium 3.7 mmol/L (3.5-5.1); Sodium 133 mmol/L (136-145); Total Bilirubin 0.2 mg/dL (0.15-1.2); Total Protein 6.1 g/dL (6.6-8.7)
--- NOTE | 2020-06-26 18:52 | XRR_ITS ---
PROCEDURE INFORMATION: Exam: XR Chest Exam date and time: 06/26/2020 6:55 PM Age: 34 years old Clinical indication: Fever; Patient HX: Post vaginal delivery 06/10/2020 TECHNIQUE: Imaging protocol: XR of the chest Views: 1 view. COMPARISON: No relevant prior studies available. FINDINGS: Lungs: There are minimal hazy opacities at the left lung base. Pleural spaces: Unremarkable. No pleural effusion. No pneumothorax. Heart/Mediastinum: Unremarkable. No cardiomegaly. Bones/joints: Unremarkable. XR/XR chest 1V portable [id number] IMPRESSION: Minimal hazy opacities at the left lung base are nonspecific. Pneumonia cannot be excluded.
[2020-06-26] MEDS: acetaminophen 325 mg Tablet 650 MG PO (19:50)
--- NOTE | 2020-06-26 20:02 | PM.SDS ---
Short Stay Summary Providers Date of Admit/Discharge: 07/02/20 Attending Provider: Dolly Nieves MD Chief Complaint: Vaginal Bleeding/Headache (Post Delivery Related) HPI History of Present Illness Janae Elizabeth is a 34 year old female who presented to the ER because she states the last several days she started to feel worse and worse. By worse she means kind of dizzy, weak, chilling and then hot flashing, and she would have off and on bleeding. She would sit down for a while and then when she stood up she would have a gush. Sometimes it would be brown sometimes red sometimes orange. Patient also complains of 1 day of nausea. She vomited once. She has had no diarrhea. She also had some lower back pain, lower back spasms, and abdominal cramping that radiated to her back. The ER physician was concerned for her abnormal amount of blood loss however after speaking with the patient her blood loss seems average for where she is . Additionally her blood count was 7.7 12 hours postdelivery. Today her hemoglobin is 7.1, thus favoring expected blood loss. Ultrasound was concerning for retained products of conception, however she is only 2 weeks so this is difficult to decipher. I was delivering physician and the placenta was grossly intact upon delivery. I do not suspect retained products, however we will monitor her bleeding closely. Interestingly since the patient has been in the ER she developed a minor temperature of 100.7. I suspect she may be coming down with a viral infection which may be causing her to feel worse the past several days. If she does well post transfusion of 2 units packed red blood cells it is possible she may be discharged home later. Review of Systems Const: Reports: chills, fatigue and diaphoresis Eyes: Denies: change in vision ENMT: Denies: throat pain, swelling of lips/tongue, nasal discharge or nasal congestion Card: Reports: lightheadedness; Denies: chest pain, irregular heart rhythm or orthopnea Resp: Denies: productive cough, non-productive cough or wheezing GI: Reports: abdominal pain, nausea and vomiting; Denies: diarrhea, constipation or bloating : Denies: flank pain, difficulty voiding or urinary frequency Musc: Reports: back pain; Denies: joint pain, joint redness or joint warmth Skin/Breast: Denies: rash or pruritus Neuro: Denies: numbness in extremities Endo: Reports: hot flashes; Denies: polyuria or polydipsia Ignacio/Lymph: Denies: enlarged lymph nodes Home Meds/Allergies Home Medications and Allergies Home Medications Medication Instructions Recorded Confirmed Type prenat.vits,giselle,[id number] 1 tab PO DAILY 12/24/19 06/26/20 History ondansetron HCl 4 mg tablet 4 mg PO Q6H PRN 01/22/20 06/26/20 History Stool Softener 200 mg PO DAILY 06/26/20 06/26/20 History Zoloft 200 mg PO BEDTIME 06/26/20 06/26/20 History ibuprofen 800 mg PO PRN 06/26/20 06/26/20 History iron 325 mg PO DAILY 06/26/20 06/26/20 History Allergies Allergy/AdvReac Type Severity Reaction Status Date / Time adhesive tape Allergy ALGY-Rash Verified 06/26/20 15:22 Penicillins Allergy ALGY-Rash Verified 06/26/20 15:22 pseudoephedrine Allergy unknown Verified 06/26/20 15:22 PFSH Acute PFSH: Medical History (Updated 06/28/20 @ 00:00 by ) Alcohol dependence, in remission Cannabis dependence Hypertension was diagnosed 2018; changed diet for management Major depressive disorder, recurrent severe without psychotic features Nicotine dependence, cigarettes, uncomplicated No pertinent past medical history neghx: dm,thyroid,dvt/pe,genital herpes negative partner hx herpes Opioid dependence, in remission 2018 Other stimulant dependence, in remission Surgical History (Updated 11/13/19 @ 14:30 by Venice Quispe APN, RANDAL) H/O dilation and curettage (~2002) due to heavy bleeding History of tonsillectomy and adenoidectomy As a child Family History Family/Other Breast cancer Paternal aunt Family history of thyroid problem Maternal cousins Ovarian cancer Maternal great aunt Uterine cancer Maternal great aunt Grandmother Breast cancer Maternal great grandmother Maternal grandmother Hyperlipidemia Maternal grandmother Hypertension Maternal grandmother Stroke Paternal grandmother Mother Heart disease Hypertension Grandfather Stroke Maternal grandfather Denies family history of Colon cancer Diabetes Social History (Updated 11/13/19 @ 14:48 by Venice Quispe APN, RANDAL) Smoking and tobacco status: current every day smoker Smoking risk assessment/counseling performed?: Yes Additional social history: - Tobacco use: Current everyday smoker; 0.5pk daily; this is down from 1-1.5 ppd Alcohol use: Former; Quit over 10 years Drug use: Marijuana; last used 10/2019 Female Reproductive History: : 1 Para: 1 Other female reproductive history: The patient delivered on 06/10/2020 via normal spontaneous vaginal delivery. She did have hemorrhage within 6 hours after delivery. Vitals/I&O/Wt Last Vital Signs Temp 100.7 F H 06/26/20 17:02 Pulse 120 H 06/26/20 19:42 Resp 16 06/26/20 19:42 BP 134/73 06/26/20 19:42 Pulse Ox 96 06/26/20 19:42 Weight last 48 hrs Weight 153 lb Physical Exam Const: COMMON NORMALS: no acute distress GENERAL APPEARANCE: cooperative and comfortable HENMT: COMMON NORMALS: normocephalic and atraumatic HEAD & SCALP: normocephalic and atraumatic FACE & SINUS: normal facial exam Eye: COMMON NORMALS: Equal, round and reactive pupils present and EOMs intact bilaterally PUPIL: Yes Equal, round and reactive pupils present Chest: COMMONS NORMALS: normal inspection of the chest Resp: COMMON NORMALS: normal respiratory effort, No retractions, No use of accessory muscles and clear to auscultation bilaterally EFFORT & INSPECTION: Yes able to speak in complete sentences AUSCULTATION: clear to auscultation bilaterally Cardio: COMMON NORMALS: regular rate RATE: regular rate and tachycardic (105) GI: COMMON NORMALS: Normal to inspection, nondistended, normoactive bowel sounds present, Soft to palpation (Fundus is firm, deep in the pelvis and nontender) and non-tender PALPATION: Yes Soft to palpation (Fundus is firm, deep in the pelvis and nontender) Extremity: GENERAL: No calf tenderness and No edema Skin: COMMON NORMALS: turgor normal NARRATIVE SKIN EXAM: Normal color, in fact her face is perhaps a little flushed GENERAL SKIN EXAM: turgor normal Hospital Course Hospital Course The patient was admitted for symptomatic blood loss anemia. She received 2 units packed red blood cells and her symptoms improved. Discharge Summary The patient felt much improved after 2 units packed red blood cells. Her chest x-ray was questionable for a left lower lobe infiltrate. Since she had been developing a fever I will go ahead and cover her with Levaquin, however it is more likely that this is a viral illness she is starting to come down with. she was discharged home in good condition SSS Data Data Completed and Pending: Completed Studies During Hospitalization Category Date Time Status XR chest 1V leo ble [id number] Stat Exams 06/26/20 18:52 Completed US pelvic complet e* [id number] Urgent Ultrasound 06/26/20 15:08 Completed Pending at discharge Category Date Time Status Leukocyte Reduced RBC Stat Lab 06/26/20 16:50 Results Type and Screen S tat Lab 06/26/20 16:50 Results Urinalysis Stat Lab 06/26/20 15:21 Uncollected Diagnoses at Discharge Discharge Diagnosis (1) Severe anemia: Status: Acute Discharge Plan Discharge Patient Disposition: Home Condition: Stable Prescriptions: Continued prenat.vits,giselle,[id number] Tablet 1 tab PO DAILY RF: 0 ondansetron HCl [Zofran] 4 mg tablet 4 mg PO Q6H PRN (Reason: Nausea) RF: 0 iron 325 mg (65 mg iron) Tablet 325 mg PO DAILY RF: 0 ibuprofen 200 mg Tablet 800 mg PO PRN RF: 0 Stool Softener 100 mg Capsule 200 mg PO DAILY RF: 0 Zoloft 100 mg tablet 200 mg PO BEDTIME RF: 0 Discharge Orders: Discharge Order (Routine); Ordered 06/27/20 Ordered By: Dolly Nieves Referrals: Dolly Nieves MD [Physician] - 06/30/20 9:30 am Discharge Diet: Usual diet Discharge Activity: Resume usual activity Patient Instructions: Anemia, Levofloxacin (By mouth), Bleeding (DC) Attestations Medical Necessity Statement*: Need for blood transfusion due to blood loss anemia Time Spent in Patient Care*: greater than 30 min Quality Metrics Clinical Quality Measures: During this hospital stay, did patient experience: None Coding Level of Care Code Acute Electrical Maintenance Supervisor for [place] Fwd Exam Comprehensive Diagnoses Severe anemia D64.9
[2020-06-26 20:42] LABS: SARS Covid-2 Antigen Negative (Negative)
[2020-06-26 21:23] LABS: Glucose Urine UA Norm (Normal); Protein Urine 1+ (Negative); Specific Gravity, Urine 1.005 (1.005-1.030); Urine Color Yellow (Yellow); pH Urine 8 (5-7)
[2020-06-26 21:24] LABS: Add Urine Microscopic? YES; Bilirubin Urine Neg (Negative); Blood Urine 3+ (Negative); Ketones Urine 1+ (Negative); Leukocyte Esterase Urine 2+ (Negative); Nitrate Urine Negative (Negative); Sulfosalicylic Acid Urine Positive (Negative); Urobilinogen Urine Norm (Negative)
[2020-06-26 21:30] LABS: Add Urine Culture? No; Bacteria Urine 4+ /hpf; RBC Urine TOO NUMEROUS TO CNT /hpf (0-2); Squamous Epithelial Cell Urine >100 /hpf (0-5); WBC Urine TOO NUMEROUS TO CNT /hpf (0-5)
[2020-06-26] MEDS: levofloxacin-dextrose 5 % 750 MG/150 ML PREMIX 100 MG IV (22:49)
[2020-06-27 00:25] VITALS: BP 105/65; BP 107/70; PULSE 86; PULSE 91; RESP 17; RESP 18; TEMP 36.2; TEMP 37; O2SAT 98; O2SAT 99
[2020-06-27] MEDS: sertraline 100 mg Tablet 200 MG PO (01:41)
[2020-06-27 01:56] VITALS: BP 113/74; PULSE 88; RESP 17; TEMP 37.3; O2SAT 97
[2020-06-27 04:00] VITALS: BP 114/75; PULSE 92; RESP 17; TEMP 36.2; O2SAT 97
--- NOTE | 2020-06-27 04:12 | PC.NURSE ---
scale zeroed out with pad, pt's pad weighed 1mL. pt had reddish-brown blood on pad. pt states that she does not feel like she is having the gushing feeling anymore
[2020-06-27 07:18] VITALS: BP 125/80; PULSE 87; RESP 18; TEMP 36.4; O2SAT 98
[2020-06-27 07:29] LABS: Basophils % 0.4 %; Eosinophils % 0.1 %; Hematocrit 30.1 % (37.0-47.0); Hemoglobin 9.8 g/dL (11.5-15.3); Lymphocytes # 2.6 10^3/uL (0.8-4.8); Lymphocytes % 25.1 %; Mean Corpuscular HGB Conc 32.6 g/dL (30.0-36.0); Mean Corpuscular Hemoglobin 27.8 pg (28.0-34.0); Mean Corpuscular Volume 85.3 fL (81-99); Mean Platelet Volume 9.3 fL (7.4-10.4); Monocytes # 0.7 10^3/uL (0.2-0.9); Monocytes % 6.7 %; Neutrophils # 6.83 10^3/uL (1.8-7.7); Neutrophils % 66.8 %; Nucleated Red Blood Cells % 0 %; Platelet Count 365 10^3/cmm (130-400); Red Blood Count 3.53 10^6/uL (4.1-5.3); Red Cell Distribution Width 15.2 % (12.1-15.1); White Blood Count 10.2 10^3/uL (4.0-10.0)
[2020-06-27] MEDS: ferrous sulfate EC 325 mg Tablet PO (08:35)
[2020-06-27] MEDS: multivitamin therapeutic Tablet 1 TAB PO (08:35)
[2020-06-27] MEDS: docusate sodium 100 mg Capsule 200 MG PO (08:35)
--- NOTE | 2020-06-27 10:01 | PC.CHAP ---
Pastoral Care Encounter/Spiritual Assessment Type of Contact [] Declined digital assistant visit [] Patient/Family/Request visit [] Outpatient visit [] Follow-up visit [] Physician referral [] Code/Alert [x] Routine visit [] Staff referral [] Actively dying [] Patient sleeping [] Family support [] [] Out of room [] Palliative care [] [] Receiving care in room [] Pre-surgical visit [] Trauma [] Long length of stay [] ICU visit [] Other: Relational/Emotional Strength [x] Patient feels connected with others/family/visitors/staff [] Distress [] Loneliness/isolation [] Abandonment Spirituality of Patient [x] Person of Jesusita [] Attends Sikh of their Jesusita [x] Believes in Prayer [] Reads Bible or Buddhism materials [] There are Spiritual issues to be addressed Medical Imaging Technologist Interventions [x] Prayer [x] Active listening [x] Non-anxious presence [x] Spiritual/emotional support [] Crisis/trauma care [] Spiritual counseling [] Bereavement support [] Provided bereavement packet [] Provided Bible/devotional materials [] Provided toy/stuffed animal, coloring book to patient or family member [] Provided Communion [] Anointing/[place] [] Salvation [] Completed spiritual assessment [] Other: Impact on Illness or Injury [] Angry [] Fearful [] Anxious [] Often cries [] Exhaustion [] Unable to work [] Unable to attend taoist [] Unable to walk/stand [] Unable to read [] Unable to drive [] Unable to eat/drink [] Unable to sleep [] Unable to be with family [] Patient intubated [] Other: Summary patient doing good Time spent with patient 10 min
[2020-06-27 11:25] VITALS: BP 111/72; PULSE 98; RESP 18; TEMP 37; O2SAT 98
--- NOTE | 2020-06-27 20:05 | PC.RESP ---
Smoking Cessation information sent to patient.
== END 2020-06-27 12:05 | disposition home or self-care (01) ==
LOC: ER 17:15 → OBGYN 20:13 → MEDSURG 06-27 06:40
PROVIDERS: Emergency Medicine; Admitting Provider Family Medicine; Emergency Provider Family Medicine; Visit Provider Family Medicine
DX: D50.0 Iron deficiency anemia secondary to blood loss (chronic) (principal); I10 Essential (primary) hypertension; F17.210 Nicotine dependence, cigarettes, uncomplicated
CPT/HCPCS: 36415; 36430; 71045; 76856; 80053; 81001; 85025; 86850; 86900; 86920; 87426; 96365; 96366; 99285; G0378; J1956; J7030; P9016

== ENCOUNTER → 2020-07-11 07:41 | Outpatient (BNVA) | payer BC, MEDICAID, SELFPAY | PROVIDERS: Visit Provider Nurse Practitioner | DX: F33.2 Major depressive disorder, recurrent severe without psychotic features (principal); F41.1 Generalized anxiety disorder; F17.210 Nicotine dependence, cigarettes, uncomplicated; F12.21 Cannabis dependence, in remission | CPT/HCPCS: 99214 ==

== ENCOUNTER → 2020-08-09 08:02 | Outpatient (BNVA) | payer BC, SELFPAY | PROVIDERS: Visit Provider Nurse Practitioner | DX: F33.2 Major depressive disorder, recurrent severe without psychotic features (principal); F41.1 Generalized anxiety disorder; F17.210 Nicotine dependence, cigarettes, uncomplicated; F12.21 Cannabis dependence, in remission | CPT/HCPCS: 99214 ==

== ENCOUNTER → 2020-10-04 07:54 | Outpatient (BNVA) | payer BC, SELFPAY | PROVIDERS: Visit Provider Nurse Practitioner | DX: F33.2 Major depressive disorder, recurrent severe without psychotic features (principal); F41.1 Generalized anxiety disorder; F17.210 Nicotine dependence, cigarettes, uncomplicated; F12.21 Cannabis dependence, in remission; F12.20 Cannabis dependence, uncomplicated | CPT/HCPCS: 99214 ==

== ENCOUNTER → 2020-12-28 07:21 | Outpatient (BNVA) | payer BC, SELFPAY | PROVIDERS: Visit Provider Nurse Practitioner | DX: F33.2 Major depressive disorder, recurrent severe without psychotic features (principal); F41.1 Generalized anxiety disorder; F17.210 Nicotine dependence, cigarettes, uncomplicated; F10.21 Alcohol dependence, in remission; F15.21 Other stimulant dependence, in remission; F12.21 Cannabis dependence, in remission; F11.21 Opioid dependence, in remission | CPT/HCPCS: 99214 ==

== ENCOUNTER → 2021-03-30 07:51 | Outpatient (BNVA) | payer BC, SELFPAY | PROVIDERS: Visit Provider Nurse Practitioner | DX: F33.2 Major depressive disorder, recurrent severe without psychotic features (principal); F41.1 Generalized anxiety disorder; F17.210 Nicotine dependence, cigarettes, uncomplicated; F15.21 Other stimulant dependence, in remission; F12.21 Cannabis dependence, in remission; F10.21 Alcohol dependence, in remission; F11.21 Opioid dependence, in remission | CPT/HCPCS: 99214 ==

== ENCOUNTER → 2021-06-23 07:28 | Outpatient (BNVA) | payer BC, SELFPAY | PROVIDERS: Visit Provider Nurse Practitioner | DX: F33.2 Major depressive disorder, recurrent severe without psychotic features (principal); F41.1 Generalized anxiety disorder; F17.210 Nicotine dependence, cigarettes, uncomplicated | CPT/HCPCS: 99214 ==

== ENCOUNTER → 2021-09-25 12:58 | Outpatient (BNVA) | payer BC, SELFPAY | PROVIDERS: Visit Provider Nurse Practitioner | DX: F32.5 Major depressive disorder, single episode, in full remission (principal); F41.1 Generalized anxiety disorder; F17.210 Nicotine dependence, cigarettes, uncomplicated; F10.21 Alcohol dependence, in remission; F15.21 Other stimulant dependence, in remission; F12.21 Cannabis dependence, in remission; F11.21 Opioid dependence, in remission | CPT/HCPCS: 99214 ==

== ENCOUNTER 2023-04-25 12:13 | Emergency (ER) | payer BC, MEDICAID, SELFPAY ==
[2023-04-25 12:17] VITALS: BP 148/95; PULSE 114; RESP 16; TEMP 36.7; O2SAT 96; BMI 30.9
[2023-04-25 12:22] VITALS: BP 139/97; PULSE 92; RESP 15; O2SAT 97
--- NOTE | 2023-04-25 12:45 | ED_ITS ---
HPI - Abdominal Pain 2 General: Chief Complaint: Abdominal Pain Stated Complaint: N/V dizzy Time Seen by Provider: 04/25/23 12:34 Source: patient Mode of arrival: ambulatory Limitations: no limitations History of Present Illness: 37-year-old female who states she has hernandez d nausea vomiting since this morning at 5 AM. She has had some abdominal cramping that improves once she vomits denies any pain currently states she has had some generalized bodyaches as well denies any fever denies any worsening proving factors. Associated Symptoms: Reports nausea and vomiting; Denies chills, diarrhea and fever(s) Review of Systems 2 Const: Denies: fever(s), chills, body aches or change in appetite ENMT: Denies: throat pain or dental pain Card: Denies: chest pain Resp: Denies: dyspnea GI: Reports: abdominal pain, nausea and vomiting; Denies: diarrhea Musc: Denies: neck pain or back pain Skin/Breast: Denies: rash Neuro: Denies: headache(s) PFSH ED 2 PFSH: Medical History (Updated 04/25/23 @ 15:23 by Jerry Maradiaga MD) Major depressive disorder in remission Psychiatric care Cannabis dependence, in remission Cannabis dependence Hypertension was diagnosed 2018; changed diet for management No pertinent past medical history neghx: dm,thyroid,dvt/pe,genital herpes negative partner hx herpes Alcohol dependence, in remission Other stimulant dependence, in remission Opioid dependence, in remission 2018 Nicotine dependence, cigarettes, uncomplicated Major depressive disorder, recurrent severe without psychotic features Surgical History History of tonsillectomy and adenoidectomy As a child H/O dilation and curettage (~2002) due to heavy bleeding Family History Family/Other Breast cancer Paternal aunt Family history of thyroid problem Maternal cousins Ovarian cancer Maternal great aunt Uterine cancer Maternal great aunt Grandmother Breast cancer Maternal great grandmother Maternal grandmother Hyperlipidemia Maternal grandmother Hypertension Maternal grandmother Stroke Paternal grandmother Mother Heart disease Hypertension Grandfather Stroke Maternal grandfather Denies family history of Colon cancer Diabetes Social History Smoking and tobacco/nicotine status: current every day tobacco/nicotine user Additional social history: - Tobacco use: Current everyday smoker; 0.5pk daily; this is down from 1-1.5 ppd Alcohol use: Former; Quit over 10 years Drug use: Marijuana; last used 10/2019 Female Reproductive History: Para: 1 Physical Exam 2 Const: COMMON NORMALS: no acute distress, patient oriented x3 and healthy appearing HENMT: COMMON NORMALS: normocephalic and atraumatic HEAD & SCALP: n ormocephalic and atraumatic Eye: COMMON NORMALS: Equal, round and reactive pupils present and EOMs intact bilaterally PUPIL: Yes Equal, round and reactive pupils present Neck/C-Spine: COMMON NORMALS: full ROM and supple Chest: COMMONS NORMALS: normal inspection of the chest Resp: COMMON NORMALS: normal respiratory effort Cardio: COMMON NORMALS: regular rate, regular rhythm and No murmurs present (Cardio) RATE: regular rate RHYTHM: regular rhythm GI: COMMON NORMALS: Normal to inspection, nondistended, normoactive bowel sounds present, Soft to palpation, non-tender and no masses PALPATION: Yes Soft to palpation Extremity: COMMON NORMALS: normal to inspection and full ROM Neuro: COMMON NORMALS: patient oriented x3, moves all extremities and no focal motor deficits Psych: COMMON NORMALS: mental status grossly normal, Normal thought process present and cooperative THOUGHT PROCESS: Normal thought process present Skin: COMMON NORMALS: no rashes or lesions noted and no wounds GENERAL SKIN EXAM: no rashes or lesions noted Course 2 Vital Signs: Vital signs: Vital Signs Temperature 98.0 F 04/25/23 12:17 Pulse Rate 89 04/25/23 13:59 Respiratory Rate 16 04/25/23 13:59 Blood Pressure 173/93 04/25/23 13:59 Pulse Oximetry 96 04/25/23 13:59 Oxygen Delivery Me thod Room Air 04/25/23 13:59 MDM - Abdominal Pain Medical Decision Making Patient presents here with vomiting some abdominal pain she did have an elevated white count CT showed colitis she feels much improved. Feel she is stable for discharge we will discharge her on pain meds nausea medicine along with Cipro and Flagyl she is to follow-up with PCP in 7 to 10 days return if she has worsening pain or vomiting or fever she understands agrees to plan. Medical Records I reviewed the patient's medical records. Lab Data I reviewed the patient's lab results. 04/25/23 12:41 04/25/23 13:10 Labs/Radiology: Laboratory Results WBC 24.11 10^3/uL (3.29-11.43) H 04/25/23 12:41 RBC 5.02 10^6/uL (3.85-5.65) 04/25/23 12:41 Hgb 14.20 g/dL (11.27-16.99) 04/25/23 12:41 Hct 41.4 % (36-47) 04/25/23 12:41 MCV 82.5 fl (85-98) L 04/25/23 12:41 MCH 28.3 pg (27-33) 04/25/23 12:41 MCHC 34.3 g/dL (30-55) 04/25/23 12:41 RDW 14.2 % (12.1-15.1) 04/25/23 12:41 Plt Count 324 10^3/cmm (157-399) 04/25/23 12:41 MPV 10.3 fL (7.4-10.4) 04/25/23 12:41 Neut % (Auto) 88.7 % 04/25/23 12:41 Lymph % (Auto) 8.0 % 04/25/23 12:41 [place] % (Auto) 2.3 % 04/25/23 12:41 Eos % (Auto) 0.3 % 04/25/23 12:41 Baso % (Auto) 0.3 % 04/25/23 12:41 Neut # (Auto) 21.37 10^3/uL (1.8-7.7) H 04/25/23 12:41 Lymph # (Auto) 1.9 10^3/uL (0.8-4.8) 04/25/23 12:41 [place] # (Auto) 0.6 10^3/uL (0.2-0.9) 04/25/23 12:41 Eos # (Auto) 0.1 10^3/uL (0.0-0.8) 04/25/23 12:41 Baso # (Auto) 0.1 10^3/uL (0.0-0.1) 04/25/23 12:41 Nucleated RBC % (auto) 0 % 04/25/23 12:41 Nucleated RBCs # 0.0 /100WBC 04/25/23 12:41 Sodium 139 mmol/L (136-145) 04/25/23 13:10 Potassium 3.9 mmol/L (3.5-5.1) 04/25/23 13:10 Chloride 106 mmol/L (98-107) 04/25/23 13:10 Carbon Dioxide 21 mmol/L (22-29) L 04/25/23 13:10 Anion Gap 15.9 (5-19) 04/25/23 13:10 BUN 7 mg/dL (6-20) 04/25/23 13:10 Creatinine 0.6 mg/dL (0.5-0.9) 04/25/23 13:10 GFR Calculation 112.5 mL/min (90-130) 04/25/23 13:10 Glucose 102 mg/dL (65-115) 04/25/23 13:10 Calculated Osmolality 286 mOsm/kg (285-295) 04/25/23 13:10 Calcium 8.8 mg/dL (8.5-10.5) 04/25/23 13:10 Total Bilirubin 0.3 mg/dL (0.15-1.2) 04/25/23 13:10 AST 12 U/L (0-32) 04/25/23 13:10 ALT 9 U/L (0-33) 04/25/23 13:10 Alkaline Phosphatase 72 U/L (35-105) 04/25/23 13:10 Total Protein 6.9 g/dL (6.6-8.7) 04/25/23 13:10 Albumin 4.0 g/dL (3.5-5.2) 04/25/23 13:10 Globulin 2.9 g/dL (1.3-4.6) 04/25/23 13:10 Lipase 30 U/L (13-60) 04/25/23 13:10 HCG, Qual Negative (Negative) 04/25/23 12:41 Urine Color Dark yellow (Yellow) 04/25/23 12:45 Urine Appearance Cloudy (CLEAR) A 04/25/23 12:45 Urine pH 6 (5-7) 04/25/23 12:45 Ur Specific [place] 1.020 (1.005-1.030) 04/25/23 12:45 Urine Protein Trace (Negative) 04/25/23 12:45 Urine Glucose (UA) Norm (Normal) 04/25/23 12:45 Urine Ketones 1+ (Negative) H 04/25/23 12:45 Urine Blood Neg (Negative) 04/25/23 12:45 Urine Nitrate Negative (Negative) 04/25/23 12:45 Urine Bilirubin Neg (Negative) 04/25/23 12:45 Urine Urobilinogen Norm mg/dL (Negative) 04/25/23 12:45 Ur Leukocyte Esterase Negative (Negative) 04/25/23 12:45 Urine RBC None /hpf (0-2) 04/25/23 12:45 Urine WBC None /hpf (0-5) 04/25/23 12:45 Ur Squamous Epith Cells 10-15 /hpf (0-5) H 04/25/23 12:45 Amorphous Sediment 1+ /hpf 04/25/23 12:45 Urine Bacteria Trace /hpf (NONE) 04/25/23 12:45 Urine Mucus 3+ /hpf 04/25/23 12:45 Influenza Type A Ag negative (Negative) 04/25/23 12:45 Influenza Type B Ag negative (Negative) 04/25/23 12:45 SARS-CoV-2 Ag (Rapid) negative (Negative) 04/25/23 12:45 All radiology interpretation(s) finalized by discharge Discharge Plan Discharge Patient Disposition: Home Clinical Impression: Colitis, Vomiting Condition: Stable Prescriptions: New hydrocodone-acetaminophen 5-325 mg tablet 1 tab PO Q6H PRN (Reason: pain) Qty: 14 0RF metronidazole 500 mg tablet 500 mg PO Q8H 7 Days Qty: 21 0RF ciprofloxacin HCl [Cipro] 500 mg tablet 500 mg PO BID Qty: 14 0RF ondansetron 4 mg tablet,disintegrating 4 mg PO Q6H PRN (Reason: nausea and vomiting) Qty: 14 0RF No Action sertraline [Zoloft] 100 mg tablet 200 mg PO BEDTIME Qty: 60 2RF mirtazapine 45 mg tablet 45 mg PO BEDTIME Discharge Orders: Discharge ED (Routine); Ordered 04/25/23 Ordered By: Jerry Maradiaga Discharge Diet: Advance as tolerated Discharge Activity: Resume usual activity Patient Instructions: Infectious Colitis (ED), Opioid Safety Coding 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
[2023-04-25 13:01] LABS: Basophils # 0.1 10^3/uL (0.0-0.1); Basophils % 0.3 %; Eosinophils # 0.1 10^3/uL (0.0-0.8); Eosinophils % 0.3 %; Hematocrit 41.4 % (36-47); Lymphocytes # 1.9 10^3/uL (0.8-4.8); Mean Corpuscular HGB Conc 34.3 g/dL (30-55); Mean Corpuscular Hemoglobin 28.3 pg (27-33); Mean Corpuscular Volume 82.5 fl (85-98); Mean Platelet Volume 10.3 fL (7.4-10.4); Monocytes # 0.6 10^3/uL (0.2-0.9); Monocytes % 2.3 %; Neutrophils # 21.37 10^3/uL (1.8-7.7); Neutrophils % 88.7 %; Nucleated Red Blood Cells % 0 %; Platelet Count 324 10^3/cmm (157-399); Red Blood Count 5.02 10^6/uL (3.85-5.65); Red Cell Distribution Width 14.2 % (12.1-15.1); White Blood Count 24.11 10^3/uL (3.29-11.43)
[2023-04-25] MEDS: diphenhydrAMINE 50 mg/mL SDV 1mL IVP (13:02)
[2023-04-25] MEDS: sodium chloride 0.9% 1,000 ML 999 ML IV ×2 (13:02→14:33)
[2023-04-25] MEDS: metoclopramide 5 mg/mL SDV 2 mL 10 MG IVP (13:02)
[2023-04-25 13:06] VITALS: BP 137/92; PULSE 90; RESP 16; O2SAT 95
--- NOTE | 2023-04-25 13:07 | CT_ITS ---
WS: [id number] CT ABDOMEN AND PELVIS WITH CONTRAST HISTORY: abd pain/vomiting TECHNIQUE: Imaging performed of the abdomen and pelvis with IV contrast. Single phase imaging of the abdomen. Coronal and sagittal reformats are submitted. All CT scans at [facility] use at [address] one of these dose optimization techniques: automated exposure control; mA and/or kV adjustment per patient size (includes targeted exams where dose is matched to clinical indication); or iterative re construction. IV CONTRAST: Omnipaque 350; 100 mL IV. Oral contrast: No DLP: 672.33 mGy.cm COMPARISON: None available. Lower thorax: Lung bases are clear. Heart is normal size. No hiatal hernia. Liver/biliary system: Normal size with no intrahepatic dilatation. Gallbladder: Normal. No gallstones or wall thickening. No pericholecystic fluid. Pancreas: Normal size pancreas and pancreatic duct. No adjacent inflammation. Spleen: Normal size spleen. No mass or infarct. Adrenal glands: Normal. Right kidney: Normal. Left kidney: Normal. Aorta: Normal. Lymphadenopathy: None. Free fluid: None. GI tract: Stomach is mildly distended with fluid and air. No small bowel obstruction. The appendix is normal. Submucosal edema is increased in the hepatic flexure through the transverse colon. There is a very small amount of pericolonic edema and stranding. No obstructive pattern. Normal descending col on. No appendicitis. Abdominal wall: Unremarkable abdominal wall. No hernia. Pelvis: No free fluid or adenopathy within the pelvis. Bones: Moderate degenerative disc disease at L5-S1. IMPRESSION: 1. Mild acute colitis predominantly involving the transverse colon and hepatic flexure. No obstructi ve pattern. No free air. 2. Evidence for appendicitis. 3. No adenopathy.
[2023-04-25 13:16] LABS: HCG, Serum Qual Negative (Negative)
--- NOTE | 2023-04-25 13:17 | PC.NURSE ---
pt denies any major abdominal surgeries, c/o chills but afebrile at this time. pt c/o n/v, denies diarrhea. pt denies recent sick contacts, SOB, chest pain, dysuria. pt abd flat, soft, non-tender to palpation. states last BM was this morning, normal for patient.
[2023-04-25 13:23] LABS: Add Urine Microscopic? YES; Bilirubin Urine Neg (Negative); Blood Urine Neg (Negative); Glucose Urine UA Norm (Normal); Ketones Urine 1+ (Negative); Leukocyte Esterase Urine Negative (Negative); Nitrate Urine Negative (Negative); Protein Urine Trace (Negative); Urine Appearance Cloudy (CLEAR); Urine Color Dark Yellow (Yellow); Urobilinogen Urine Norm (Negative); pH Urine 6 (5-7)
[2023-04-25 13:26] LABS: Influenza A by IFA negative (Negative); Influenza B by IFA negative (Negative)
[2023-04-25 13:28] LABS: Amorphous Sediment Urine 1+ /hpf; Bacteria Urine TRACE /hpf; Mucus Urine 3+ /hpf
[2023-04-25 13:29] LABS: Add Urine Culture? No
[2023-04-25 13:33] LABS: Alanine Aminotransferase 9 U/L (0-33); Alkaline Phosphatase 72 U/L (35-105); Anion Gap 15.9 (5-19); Aspartate Amino Transferase 12 U/L (0-32); Blood Urea Nitrogen 7 mg/dL (6-20); Calcium 8.8 mg/dL (8.5-10.5); Carbon Dioxide 21 mmol/L (22-29); Chloride 106 mmol/L (98-107); Globulin 2.9 g/dL (1.3-4.6); Glomerular Filtration Rate 112.5 mL/min (90-130); Glucose 102 mg/dL (65-115); Lipase 30 U/L (13-60); Osmolality Calculated 286 mOsm/kg (285-295); Potassium 3.9 mmol/L (3.5-5.1); Sodium 139 mmol/L (136-145); Total Bilirubin 0.3 mg/dL (0.15-1.2); Total Protein 6.9 g/dL (6.6-8.7)
[2023-04-25 13:46] LABS: SARS Covid-2 Antigen negative (Negative)
[2023-04-25 13:59] VITALS: BP 173/93; PULSE 89; RESP 16; O2SAT 96
[2023-04-25] MEDS: iohexol 350 mg/mL 500 mL Btl (per mL) IV (14:43)
[2023-04-25 15:38] VITALS: BP 148/98; PULSE 116; O2SAT 98
== END 2023-04-25 15:42 | disposition home or self-care (01) ==
PROVIDERS: Emergency Provider Emergency Medicine
DX: K52.9 Noninfective gastroenteritis and colitis, unspecified (principal); Z11.52 Encounter for screening for COVID-19; F17.210 Nicotine dependence, cigarettes, uncomplicated; I10 Essential (primary) hypertension
CPT/HCPCS: 36415; 74177; 80053; 81001; 83690; 84703; 85025; 87426; 87804; 96374; 96375; 99285; J1200; J2765; J7030; Q9967

== ENCOUNTER 2023-11-25 18:40 | Emergency (ER) | payer SELFPAY ==
[2023-11-25 18:50] VITALS: BP 130/87; PULSE 109; TEMP 37; O2SAT 98; BMI 28.3
--- NOTE | 2023-11-25 19:06 | ED_ITS ---
HPI - Dental/Oral 2 General: Chief complaint: Dental/Oral Stated complaint: Right side of face swelling Time Seen by Provider: 11/25/23 18:55 Source: patient Mode of arrival: ambulatory Limitations: no limitations History of Present Illness: Patient is a 38-year-old female who presents to ED today with complaint of a dental infection and swelling involving the right side of her face over the past 2 days. Patient states she has a longstanding history of dental problems and poor dental care. She is not running fevers. No trouble eating, drinking, swallowing, breathing. Onset (ago): day(s) Duration: constant Severity: moderate Relieving factors: nothing Exacerbating factors: nothing Context: history of dental caries and poor dental care Associated symptoms: Reports other (facial swelling); Denies ear or mastoid pain, fever(s) or odynophagia Treatment prior to arrival: none Review of Systems 2 Const: Denies: fever(s), chills, body aches, fatigue or malaise ENMT: Reports: dental pain and sinus pain; Denies: throat pain, odynophagia, swelling of lips/tongue, ear or mastoid pain, nasal discharge or nasal congestion Card: Denies: chest pain Resp: Denies: dyspnea GI: Denies: nausea or vomiting Musc: Denies: neck pain Neuro: Denies: headache(s) PFSH ED 2 PFSH: Medical History Major depressive disorder in remission Psychiatric care Cannabis dependence, in remission Cannabis dependence Hypertension was diagnosed 2018; changed diet for management No pertinent past medical history neghx: dm,thyroid,dvt/pe,genital herpes negative partner hx herpes Alcohol dependence, in remission Other stimulant dependence, in remission Opioid dependence, in remission 2018 Nicotine dependence, cigarettes, uncomplicated Major depressive disorder, recurrent severe without psychotic features Surgical History History of tonsillectomy and adenoidectomy As a child H/O dilation and curettage (~2002) due to heavy bleeding Family History Family/Other Breast cancer Paternal aunt Family history of thyroid problem Maternal cousins Ovarian cancer Maternal great aunt Uterine cancer Maternal great aunt Grandmother Breast cancer Maternal great grandmother Maternal grandmother Hyperlipidemia Maternal grandmother Hypertension Maternal grandmother Stroke Paternal grandmother Mother Heart disease Hypertension Grandfather Stroke Maternal grandfather Denies family history of Colon cancer Diabetes Social History Smoking and tobacco/nicotine status: current every day tobacco/nicotine user Additional social history: - Tobacco use: Current everyday smoker; 0.5pk daily; this is down from 1-1.5 ppd Alcohol use: Former; Quit over 10 years Drug use: Marijuana; last used 10/2019 Female Reproductive History: Para: 1 Physical Exam 2 Const: COMMON NORMALS: no acute distress, average body habitus, patient oriented x3, no limitations, alert and well nourished HENMT: COMMON NORMALS: Normal external nose present FACE & SINUS: edema; no erythema and no fluctuance FACE & SINUS IMAGES: 1. edema NOSE: Normal external nose present MOUTH: Normal oral and palatal mucosa present and lip normal TEETH & GINGIVA: Yes caries and Yes other (widespread severe dental disease) TEETH & GINGIVA IMAGES: 1. pain/gingival edema without fluctuant abscess THROAT: posterior oropharynx normal and tonsils normal Eye: COMMON NORMALS: EOMs intact bilaterally GENERAL EYE: appearance normal, both eyes and all related structures and normal light reflex DIRECT OPHTHALMOSCOPY: Yes normal light reflex Neck/C-Spine: COMMON NORMALS: no lymphadenopathy Resp: COMMON NORMALS: normal respiratory effort and clear to auscultation bilaterally AUSCULTATION: clear to auscultation bilaterally Cardio: COMMON NORMALS: regular rate and regular rhythm RATE: regular rate RHYTHM: regular rhythm Neuro: COMMON NORMALS: patient oriented x3 SENSORIUM/ORIENTATION: Yes alert Course 2 Vital Signs: Vital signs: Vital Signs Temperature 98.6 F 11/25/23 18:50 Pulse Rate 109 H 11/25/23 18:50 Blood Pressure 130/87 11/25/23 18:50 Pulse Oximetry 98 11/25/23 18:50 Oxygen Delivery Me thod Room Air 11/25/23 18:50 MDM - Dental/Oral Medical Decision Making Patient was given IM antibiotics prior to discharge and will be placed on oral antibiotics. Recommend prompt dental follow-up. Return to ED precautions given. Differential Diagnosis Likely gingival abscess, dental caries, toothache and dental abscess Medical Records I reviewed the patient's medical records. No radiology studies performed this visit Discharge Plan Discharge Patient Disposition: Home Clinical Impression: Dental infection Condition: Stable Prescriptions: New clindamycin HCl 300 mg capsule 300 mg PO Q6H 7 Days Qty: 28 0RF No Action mirtazapine 45 mg tablet 45 mg PO BEDTIME Qty: 30 2RF sertraline [Zoloft] 100 mg tablet 200 mg PO BEDTIME Qty: 60 2RF Discharge Orders: Discharge ED (Routine); Ordered 11/25/23 Ordered By: Jewels Juarez Patient Instructions: Dental Caries (Cavities), Dental Abscess Activity Restrictions/Additional Instructions: As we discussed, failure antibiotics and start them immediately tomorrow. You need to follow-up with a dentist to soon as possible. You need to return to the emergency department for worsening pain, swelling, severe headache, fevers, or any other concerns you may have. 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
[2023-11-25] MEDS: cefTRIAXone 1,000 MG in water for injection-sterile 2.1 ML 1 MG IM (19:24)
[2023-11-25 19:32] VITALS: BP 126/107; PULSE 104; RESP 16; O2SAT 96
== END 2023-11-25 19:34 | disposition home or self-care (01) ==
PROVIDERS: Emergency Provider Physician Assistant
DX: K04.7 Periapical abscess without sinus (principal); Z72.0 Tobacco use
CPT/HCPCS: 96372; 99284; J0696